=== PATIENT | female | born 2000 | race Caucasian/White ===

== ENCOUNTER 2019-10-06 13:02 | Emergency (ER) | payer OTHER ==
--- NOTE | 2019-10-06 13:48 | ER Document Report ---
ED Medical Screen (RME) - General Chief Complaint: Abdominal Pain Stated Complaint: ABDOMINAL PAIN Time Seen by Provider: 10/06/19 13:43 Notes: HPI: 19-year-old female who is approximately 8 weeks by dates presenting for an episode of vaginal bleeding overnight last night. Also has been having some intermittent sharp left pelvic pain. 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 Has not had fever nausea vomiting I have greeted and performed a rapid initial assessment of this patient. A comprehensive ED assessment and evaluation of the patient, analysis of test results and completion of the medical decision making process will be conducted by additional ED providers PHYSICAL EXAMINATION: GENERAL: Well-appearing, well-nourished and in no acute distress. HEAD: Atraumatic, normocephalic. EYES: sclera anicteric, conjunctiva are normal. ENT: Moist mucous membranes. NECK: Normal range of motion LUNGS: Normal work of breathing HEART: 2+ radial pulses bilaterally ABD: limited by positioning for exam in triage. Mild tenderness in the left pelvis on palpation EXTREMITIES: no pitting or edema. No cyanosis. NEUROLOGICAL: No focal neurological deficits. Moves all extremities spontaneously and on command. PSYCH: Normal mood, normal affect. SKIN: Warm, Dry, normal turgor, no rashes or lesions noted. - Related Data Allergies/Adverse Reactions: No Known Allergies Allergy (Verified 10/06/19 13:41) Past Medical History - Social History Frequency of alcohol use: None Drug Abuse: None Physical Exam - Vital signs Vitals: Temp Pulse Resp BP Pulse Ox 98.4 F 84 16 104/62 100 10/06/19 13:10/06/19 13:10/06/19 13:10/06/19 13:10/06/19 13:27 Course - Vital Signs Vital signs: Temp Pulse Resp BP Pulse Ox 98.4 F 84 16 104/62 100 10/06/19 13:27 10/06/19 13:10/06/19 13:27 10/06/19 13:27 10/06/19 13:27
[2019-10-06 16:03] LABS: APPEARANCE,URINE SLIGHTLY-CLOUDY; BILIRUBIN,URINE NEGATIVE (NEGATIVE); COLOR,URINE YELLOW; GLUCOSE, URINE NEGATIVE (NEGATIVE); KETONES,URINE NEGATIVE (NEGATIVE); LEUKOCYTE ESTERASE,URINE MODERATE (NEGATIVE); NITRITE,URINE NEGATIVE (NEGATIVE); PROTEIN,URINE NEGATIVE (NEGATIVE); UROBILINOGEN,URINE NEGATIVE mg/dL (<2.0)
[2019-10-06 16:07] LABS: ABSOLUTE EOSINOPHILS # (AUTO) 0.1 10^3/uL (0.0-0.6); ABSOLUTE LYMPHOCYTES (AUTO) 2.2 10^3/uL (0.5-4.7); ABSOLUTE MONOCYTES (AUTO) 0.3 10^3/uL (0.1-1.4); ABSOLUTE NEUT (AUTO) 6.3 10^3/uL (1.7-8.2); BASOPHILS % (AUTO) 0.4 % (0-2); EOSINOPHILS % (AUTO) 0.6 % (0-6); HEMATOCRIT 39.8 % (36.0-47.0); HEMOGLOBIN 13.9 g/dL (12.0-15.5); MEAN CORPUSCULAR HEMOGLOBIN 29.6 pg (27.0-33.4); MEAN CORPUSCULAR HGB CONC 34.9 g/dL (32.0-36.0); MEAN CORPUSCULAR VOLUME 85 fl (80-97); MONOCYTES % (AUTO) 3.8 % (3-13); PLATELET COUNT 246 10^3/uL (150-450); RED BLOOD COUNT 4.68 10^6/uL (3.72-5.28); RED CELL DISTRIBUTION WIDTH 13.1 % (11.5-14.0); SEGMENTED NEUTROPHILS % (AUTO) 70.2 % (42-78); TOTAL CELLS COUNTED % (AUTO) 100 %
[2019-10-06 16:18] LABS: ALBUMIN 4.9 g/dL (3.5-5.0); ALKALINE PHOSPHATASE 88 U/L (38-126); ANION GAP 11 (5-19); ASPARTATE AMINO TRANSFERASE 22 U/L (14-36); BILIRUBIN,TOTAL 0.9 mg/dL (0.2-1.3); BLOOD UREA NITROGEN 7 mg/dL (7-20); CALCIUM 9.5 mg/dL (8.4-10.2); CARBON DIOXIDE 26 mmol/L (22-30); CHLORIDE 100 mmol/L (98-107); GLUCOSE 79 mg/dL (75-110); POTASSIUM 4.4 mmol/L (3.6-5.0); TOTAL PROTEIN 8.4 g/dL (6.3-8.2)
--- NOTE | 2019-10-06 17:20 | ER Document Report ---
ED GI/ - General Chief Complaint: Abdominal Pain Stated Complaint: ABDOMINAL PAIN Time Seen by Provider: 10/06/19 17:10 Primary Care Provider: ТАТЬЯНА GODWIN CRNP [NO LOCAL MD] - Follow up as needed Mode of Arrival: Ambulatory Information source: Patient Notes: Patient states that she is G2, P1 8 weeks with vaginal bleeding that started yesterday. 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 Patient denies any urinary symptoms. Patient does complain of left lower pelvic pain. Patient reports nausea with vomiting x2 episodes today. Patient states she has had nausea throughout the thus far. Patient states that she has not had an ultrasound to confirm the yet. - HPI Patient complains to provider of: Abdominal pain, Vaginal bleeding. 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 denies: Dysuria, Fever, Urinary hesitancy, Urinary frequency, Urinary retention, Urinary urgency Exacerbated by: Denies Relieved by: Denies Similar symptoms previously: No Recently seen / treated by doctor: No - Related Data Allergies/Adverse Reactions: No Known Allergies Allergy (Verified 10/06/19 13:41) Past Medical History - General Information source: Patient - Social History Smoking Status: Never Smoker Frequency of alcohol use: None Drug Abuse: None Occupation: none Lives with: Family Family History: Reviewed & Not Pertinent Patient has suicidal ideation: No Patient has homicidal ideation: No - Medical History Medical History: Negative Surgical Hx: Negative Review of Systems - Review of Systems Constitutional: No symptoms reported. denies: Fever, Recent illness EENT: No symptoms reported Cardiovascular: No symptoms reported. denies: Chest pain, Dizziness Respiratory: No symptoms reported. denies: Cough Gastrointestinal: Abdominal pain, Nausea, Vomiting. denies: Diarrhea Genitourinary: No symptoms reported. denies: Dysuria, Flank pain Female Genitourinary: , Vaginal bleeding. denies: Vaginal discharge Musculoskeletal: No symptoms reported. denies: Back pain Skin: No symptoms reported Hematologic/Lymphatic: No symptoms reported Neurological/Psychological: No symptoms reported Physical Exam - Vital signs Vitals: Temp Pulse Resp BP Pulse Ox 98.4 F 84 16 104/62 100 02/04/20 13:27 10/06/19 13:27 10/06/19 13:27 10/06/19 13:27 10/06/19 13:27 - General General appearance: Appears well, Alert In distress: None - HEENT Head: Normocephalic, Atraumatic Eyes: Normal Conjunctiva: Normal Nasal: Normal Mouth/Lips: Normal Mucous membranes: Normal Neck: Normal, Supple. No: Lymphadenopathy - Respiratory Respiratory status: No respiratory distress Chest status: Nontender Breath sounds: Normal. No: Rales, Rhonchi, Stridor, Wheezing Chest palpation: Normal - Cardiovascular Rhythm: Regular Heart sounds: S1 appreciated, S2 appreciated Murmur: No - Abdominal Inspection: Gravid female Distension: No distension Bowel sounds: Normal Tenderness: Tender - Left lower pelvic Organomegaly: No organomegaly - Back Back: Normal, Nontender. No: CVA tenderness - Extremities General upper extremity: Normal inspection, Normal strength General lower extremity: Normal inspection, Normal strength - Neurological Neuro grossly intact: Yes Cognition: Normal Orientation: AAOx4 [place] Coma Scale Eye Opening: Spontaneous [place] Coma Scale Verbal: Oriented [place] Coma Scale Motor: Obeys Commands [place] Coma Scale Total: 15 - Psychological Associated symptoms: Normal affect, Normal mood - Skin Skin Temperature: Warm Skin Moisture: Dry Skin Color: Normal Course - Vital Signs Vital signs: Temp Pulse Resp BP Pulse Ox 98.7 F 86 20 120/68 100 10/06/19 18:43 10/06/19 18:43 10/06/19 18:43 10/06/19 18:43 10/06/19 18:43 - Laboratory Result Diagrams: 10/06/19 15:25 10/06/19 15:25 Laboratory results interpreted by me: 10/06/19 10/06/19 15:15 15:25 Creatinine 0.44 L Total Protein 8.4 H Beta HCG, Quant 328943.00 H Ur Leukocyte Esterase MODERATE H Discharge - Discharge Clinical Impression: Vaginal bleeding affecting early UTI (urinary tract infection) Qualifiers: Urinary tract infection type: site unspecified Hematuria presence: without hematuria Qualified Code(s): N39.0 - Urinary tract infection, site not specified Subchorionic bleed Qualifiers: Fetus number: single or unspecified fetus Trimester: first trimester Qualified Code(s): O41.8X10 - Other specified disorders of amniotic fluid and membranes, first trimester, not applicable or unspecified Condition: Stable Disposition: HOME, SELF-CARE Instructions: Bleeding During Early ([facility]), Cephalexin ([facility]), Urinary Tract Infection ([facility]) Additional Instructions: Return immediately for any new or worsening symptoms Followup with your primary care provider, call tomorrow to make a followup appointment Follow-up with your ULTIMATE HOOPS REFEREE for recheck. Your ultrasound showed a subchorionic bleed, which is the cause of your vaginal bleeding at this time. Prescriptions: Cephalexin Monohydrate [Keflex 500 mg Capsule] 500 mg PO BID 5 Days capsule Promethazine HCl [Phenergan 25 mg Tablet] 25 mg PO Q6H PRN #10 tablet PRN Reason: Referrals: ТАТЬЯНА GODWIN CRNP [NO LOCAL MD] - Follow up as needed
--- NOTE | 2019-10-06 18:19 | RADIOLOGY REPORT (SQ) ---
EXAM DESCRIPTION: U/S OB TRANSVAG W/DOPPLER COMPLETED DATE/TIME: 10/06/2019 6:08 pm REASON FOR STUDY: left pelvic pain eval for ectopic COMPARISON: None. TECHNIQUE: Transvaginal static and realtime grayscale images acquired of the pelvis. Additional pamela cted spectral and color Doppler images recorded. All images stored on PACs. [facility] [place] CLINICAL DATES: 7 weeks 6 days LIMITATIONS: None. FINDINGS: FETUS: Single Living intrauterine . ULTRASOUND EGA: 7 weeks 5 days ULTRASOUND NATALIIA: 05/19/2020 EFW: Not applicable less than 20 weeks. CRL: 1.4 cm FHR: 162 beats per minute. SURVEY: Too early to assess. AMNIOTIC FLUID: Adequate amount. PLACENTA: Not yet developed due to early gestation. SUBCHORIONIC BLEED: Yes. SIZE OF BLEED: 3 x 3 x 2 cm UTERUS: No masses. No anomalies. CERVICAL LENGTH: Not applicable. Less than 6 weeks. RIGHT ADNEXA: Normal ovary with normal vascular flow. No adnexal free fluid. No adnexal masses. LEFT ADNEXA: Normal ovary with normal vascular flow. No adnexal free fluid. No adnexal masses. FREE FLUID: None. OTHER: No other significant finding. IMPRESSION: Single live intrauterine with moderate to large subchorionic hemorrhage. No e vidence of heterotopic . US EGA 7 weeks 5 days Trimester of : First trimester - 0 to 13 weeks. TECHNICAL DOCUMENTATION: JOB ID: [id number] [employer]- All Rights Reserved rev Reading location - IP/workstation name: [email or web address]
[2019-10-06 18:45] VITALS: BP 120/68
[2019-10-06] MEDS ORDERED: CEPHALEXIN 500 MG CAPSULE PO ONE (19:29)
== END 2019-10-06 19:51 | disposition home or self-care (01) ==
LOC: ER 13:02
DX: O23.41 Unspecified infection of urinary tract in pregnancy, first trimester (principal); O20.8 Other hemorrhage in early pregnancy; O21.9 Vomiting of pregnancy, unspecified; Z3A.08 8 weeks gestation of pregnancy
CPT/HCPCS: 36415; 76817; 80053; 81001; 84702; 85025; 86900; 86901; 93976; 99284

== ENCOUNTER 2019-10-12 09:40 | Emergency (ER) | payer OTHER ==
[2019-10-12] MEDS ORDERED: METOCLOPRAMIDE HCL INJ/PF 10 MG/2 ML SDV IV ONE (10:15)
[2019-10-12] MEDS ORDERED: NORMAL SALINE 1000 ML 1,000 ML IV ONE (10:15)
[2019-10-12] MEDS ORDERED: DIPHENHYDRAMINE HCL 50 MG/ML VIAL IV ONE (10:15)
--- NOTE | 2019-10-12 10:16 | ER Document Report ---
ED Medical Screen (RME) - General Chief Complaint: Nausea/Vomiting Stated Complaint: NAUSEA/VOMITING Time Seen by Provider: 10/12/19 10:11 Mode of Arrival: Ambulatory Information source: Patient Notes: Patient is presently 8 weeks G2, P1. Patient states she is had nausea and vomiting the past 4 days. Patient reports vomiting 4 episodes today. No diarrhea. Patient denies any abdominal tenderness or vaginal bleeding. Patient states she was recently diagnosed with a UTI but has not been able to get the antibiotic as it did not get sent over to the pharmacy how it was initially supposed to. I have greeted and performed a rapid initial assessment of this patient. A comprehensive ED assessment and evaluation of the patient, analysis of test results and completion of the medical decision making process will be conducted by additional ED providers. - Related Data Allergies/Adverse Reactions: No Known Allergies Allergy (Verified 10/12/19 10:07) Past Medical History - Social History Frequency of alcohol use: None Drug Abuse: None Physical Exam - Vital signs Vitals: Temp Pulse BP Pulse Ox 98.2 F 84 122/73 100 10/12/19 09:46 10/12/19 09:46 10/12/19 09:46 10/12/19 09:46 - General General appearance: Alert - Abdominal Tenderness: Nontender Course - Vital Signs Vital signs: Temp Pulse Resp BP Pulse Ox 98.2 F 84 122/73 100 10/12/19 09:46 10/12/19 09:46 10/12/19 09:46 10/12/19 09:46
[2019-10-12 10:57] LABS: APPEARANCE,URINE CLOUDY; BILIRUBIN,URINE NEGATIVE (NEGATIVE); GLUCOSE, URINE NEGATIVE (NEGATIVE); KETONES,URINE 20 mg/dL (NEGATIVE); LEUKOCYTE ESTERASE,URINE MODERATE (NEGATIVE); NITRITE,URINE NEGATIVE (NEGATIVE); PROTEIN,URINE 30 mg/dL (NEGATIVE); URINE SPECIFIC GRAVITY 1.026
[2019-10-12 10:58] LABS: COLOR,URINE YELLOW
[2019-10-12 11:31] LABS: ABSOLUTE LYMPHOCYTES (AUTO) 1.4 10^3/uL (0.5-4.7); ABSOLUTE MONOCYTES (AUTO) 0.3 10^3/uL (0.1-1.4); BASOPHILS % (AUTO) 0.3 % (0-2); EOSINOPHILS % (AUTO) 0.2 % (0-6); HEMATOCRIT 41.4 % (36.0-47.0); HEMOGLOBIN 14.9 g/dL (12.0-15.5); LYMPHOCYTES % (AUTO) 18.7 % (13-45); MEAN CORPUSCULAR VOLUME 83 fl (80-97); MONOCYTES % (AUTO) 3.6 % (3-13); PLATELET COUNT 247 10^3/uL (150-450); RED BLOOD COUNT 4.97 10^6/uL (3.72-5.28); RED CELL DISTRIBUTION WIDTH 13.3 % (11.5-14.0); SEGMENTED NEUTROPHILS % (AUTO) 77.2 % (42-78); TOTAL CELLS COUNTED % (AUTO) 100 %; WHITE BLOOD COUNT 7.7 10^3/uL (4.0-10.5)
[2019-10-12 11:50] LABS: ALBUMIN 5.1 g/dL (3.5-5.0); ALKALINE PHOSPHATASE 90 U/L (38-126); ANION GAP 13 (5-19); ASPARTATE AMINO TRANSFERASE 31 U/L (14-36); BILIRUBIN,TOTAL 1.1 mg/dL (0.2-1.3); BLOOD UREA NITROGEN 9 mg/dL (7-20); CALCIUM 10.1 mg/dL (8.4-10.2); CARBON DIOXIDE 26 mmol/L (22-30); CHLORIDE 101 mmol/L (98-107); GLUCOSE 88 mg/dL (75-110); POTASSIUM 4.1 mmol/L (3.6-5.0); TOTAL PROTEIN 8.5 g/dL (6.3-8.2)
[2019-10-12] MEDS ORDERED: CEPHALEXIN 500 MG CAPSULE PO ONE (11:52)
--- NOTE | 2019-10-12 11:57 | ER Document Report ---
ED General - General Chief Complaint: Nausea/Vomiting Stated Complaint: NAUSEA/VOMITING Time Seen by Provider: 10/12/19 10:11 Mode of Arrival: Ambulatory - HPI Notes: Patient is a 19-year-old female, G2, P1 at approximately 8 weeks gestation, who presents emergency department for evaluation of nausea and vomiting. She is being seen by an OB at [place]. She is tried oral Phenergan and Reglan without any significant relief. She is never been given suppositories. She is not on Zofran or likely just at this time. She denies any fevers or chills. She denies any vaginal bleeding or discharge. No abdominal pain. She states she was seen here for urinary tract infection about a week ago, states the antibiotic was not sent to the pharmacy, and she did not follow-up in regards to it. She denies any dysuria, has had some mild urinary frequency. - Related Data Allergies/Adverse Reactions: No Known Allergies Allergy (Verified 10/12/19 10:07) Home Medications: vitamin, Phenergan and Reglan as needed Past Medical History - General Information source: Patient - Social History Smoking Status: Never Smoker Frequency of alcohol use: None Drug Abuse: None Family History: Reviewed & Not Pertinent Patient has suicidal ideation: No Patient has homicidal ideation: No Review of Systems - Review of Systems Gastrointestinal: See HPI -: Yes All other systems reviewed and negative Physical Exam - Vital signs Vitals: Temp Pulse BP Pulse Ox 98.2 F 84 122/73 100 10/12/19 09:46 10/12/19 09:46 10/12/19 09:46 10/12/19 09:46 - Notes Notes: Vital signs reviewed, please refer to chart. Head is normocephalic, atraumatic. Pupils equal round, reactive to light. Neck is supple without meningismus. Heart is regular rate and rhythm. Lungs are clear to auscultation bilaterally. Abdomen is soft, nontender, normoactive bowel sounds throughout. Extremities without cyanosis, clubbing. Posterior calves are nontender. Peripheral pulses are equal. Skin is warm and dry. Patient is awake, alert, neurological exam is nonfocal. Course - Re-evaluation Re-evalutation: 10/12/19 11:55 Patient is a 19-year-old female who presents to the emergency department for evaluation. She states she is had multiple episodes of nonbloody, nonbilious emesis. She states that this is not unfamiliar, and she had similar symptoms in the past with her last . She does not seem to be significantly volume depleted at this time. Labs are pending. She does have some bacteriuria, will treat with Keflex. She is given IV fluids and medications to help. We will continue to monitor. 10/12/19 11:56 10/12/19 12:55 Patient's laboratory investigations failed to reveal significant dehydration at this time. We will treat with Keflex. I will send her home with a prescription for Phenergan suppositories as well as diclegis. She is to follow-up with OB, return to the ED with worsening or concerning symptoms of any sort. - Vital Signs Vital signs: Temp Pulse Resp BP Pulse Ox 98.1 F 84 122/73 100 10/12/19 11:46 10/12/19 09:46 10/12/19 09:46 10/12/19 09:46 - Laboratory Result Diagrams: 10/12/19 11:15 10/12/19 11:15 Laboratory results interpreted by me: 10/12/19 10/12/19 10:25 11:15 Creatinine 0.45 L Total Protein 8.5 H Albumin 5.1 H Urine Protein 30 H Urine Ketones 20 H Urine Urobilinogen 2.0 H Ur Leukocyte Esterase MODERATE H Urine Ascorbic Acid 40 H Discharge - Discharge Clinical Impression: UTI (urinary tract infection), Nausea/vomiting in Condition: Stable Disposition: HOME, SELF-CARE Instructions: Antinausea Medication ([facility]), Cephalexin ([facility]), Urinary Tract Infection ([facility]) Additional Instructions: Stay hydrated with small, frequent sips of fluids. Use nausea medications as directed. Follow-up with your OB this week. Return to the emergency department with worsening or new concerning symptoms of any sort.
[2019-10-12 13:22] VITALS: BP 112/72
== END 2019-10-12 13:22 | disposition home or self-care (01) ==
LOC: ER 09:40
DX: O21.8 Other vomiting complicating pregnancy (principal); O23.41 Unspecified infection of urinary tract in pregnancy, first trimester; Z3A.08 8 weeks gestation of pregnancy
CPT/HCPCS: 36415; 80053; 81001; 83690; 85025; 87086; 96361; 96374; 96375; 99283; J1200; J2765; J7030

== ENCOUNTER 2019-11-14 23:18 | Emergency (ER) | payer OTHER ==
[2019-11-14] MEDS ORDERED: METOCLOPRAMIDE HCL INJ/PF 10 MG/2 ML SDV IV ONE (23:49)
[2019-11-14] MEDS ORDERED: NORMAL SALINE 1000 ML 1,000 ML IV ONE (23:49)
[2019-11-15] MEDS ORDERED: ONDANSETRON 4 MG TAB.RAPDIS PO ONE (00:48)
--- NOTE | 2019-11-15 00:49 | RADIOLOGY REPORT (SQ) ---
EXAM DESCRIPTION: XR CHEST 2 VIEWS COMPLETED DATE/TME: 11/14/2019 23:49 CLINICAL HISTORY: 19 years, Female, chest pain COMPARISON: NUMBER OF VIEWS: TECHNIQUE: LIMITATIONS: None. FINDINGS: No evidence of pulmonary infiltrate or pleural effusion. The heart and mediastinum are unremarkable. Pulmonary vascularity appears normal. IMPRESSION: Normal chest x-ray. copyright 2010 [employer]- All Rights Reserved
[2019-11-15] MEDS ORDERED: ONDANSETRON HCL INJ/PF 4 MG/2 ML SDV IV ONE (01:26)
--- NOTE | 2019-11-15 01:27 | ER Document Report ---
Entered by FANG ROYAL SCRIBE 11/15/19 0044 Acting as scribe for:LIZ FLOOD IV, MD ED General - General Chief Complaint: OB Problem (<20wks) Stated Complaint: VOMITING BLOOD/13 WEEKS Time Seen by Provider: 11/15/19 00:41 Mode of Arrival: Ambulatory Information source: Patient Notes: This 19 year old female patient approximately x13 weeks presents to the ED today with complaints of hematemesis x3 that occurred prior to arrival. Patient reports that she has been vomiting since she found out she was , but states that she saw blood clots and dark colored blood in the toilet after dry heaving tonight. Patient also reports lightheadedness, dizziness, dry cough, and abdominal pain. TRAVEL OUTSIDE OF THE [place] IN LAST 30 DAYS: No - Related Data Allergies/Adverse Reactions: diphenhydramine [From Benadryl] Adverse Reaction (Verified 11/14/19 23:41) Home Medications: phenergan, zofran, scalpomaine patches. Past Medical History - General Information source: Patient - Social History Smoking Status: Never Smoker Cigarette use (# per day): No Chew tobacco use (# tins/day): No Smoking Education Provided: No Frequency of alcohol use: None Drug Abuse: None Family History: Reviewed & Not Pertinent Patient has suicidal ideation: No Patient has homicidal ideation: No Review of Systems - Review of Systems Constitutional: No symptoms reported EENT: No symptoms reported Cardiovascular: See HPI, Dizziness, Lightheaded Respiratory: See HPI, Cough Gastrointestinal: See HPI, Abdominal pain, Nausea, Vomiting, Blood in vomit Genitourinary: No symptoms reported Female Genitourinary: See HPI, - x13 weeks Musculoskeletal: No symptoms reported Skin: No symptoms reported Hematologic/Lymphatic: No symptoms reported Neurological/Psychological: No symptoms reported -: Yes All other systems reviewed and negative Physical Exam - Vital signs Vitals: Pulse Resp BP Pulse Ox 103 H 18 108/83 100 11/14/19 23:35 11/14/19 23:35 11/14/19 23:35 11/14/19 23:35 - General General appearance: Alert, Other - Appears pale. - HEENT Head: Normocephalic, Atraumatic Eyes: Normal Pupils: PERRL - Respiratory Respiratory status: No respiratory distress Chest status: Nontender Breath sounds: Normal Chest palpation: Normal - Cardiovascular Rhythm: Regular, Tachycardia Heart sounds: Normal auscultation Murmur: No Friction rub: No Gallop: None auscultated - Abdominal Inspection: Normal Distension: No distension Bowel sounds: Normal Tenderness: Nontender - Abdomen soft Organomegaly: No organomegaly - Back Back: Normal, Nontender - Extremities General upper extremity: Normal inspection General lower extremity: Normal inspection - Neurological Neuro grossly intact: Yes - Psychological Associated symptoms: Normal affect, Normal mood - Skin Skin Temperature: Warm Skin Moisture: Dry Skin Color: Pale Course - Re-evaluation Re-evalutation: 11/15/19 03:09 Results of ED MSE discussed with patient. All questions were answered prior to discharge. Emergency signs and symptoms, reasons to return to the emergency department discussed with patient. - Vital Signs Vital signs: Temp Pulse Resp BP Pulse Ox 97.9 F 103 H 16 112/63 100 11/15/19 01:36 11/14/19 23:35 11/15/19 02:01 11/15/19 02:01 11/15/19 02:01 - Laboratory Result Diagrams: 11/15/19 01:25 11/15/19 01:25 Laboratory results interpreted by me: 11/15/19 11/15/19 01:25 01:25 Lymph % (Auto) 11.0 L [place] % (Auto) 1.7 L Absolute Neuts (auto) 8.4 H Seg Neutrophils % 87.1 H Carbon Dioxide 18 L Anion Gap 20 H Creatinine 0.44 L Calcium 10.3 H Total Bilirubin 2.0 H Direct Bilirubin 0.6 H AST 53 H ALT 74 H Total Protein 8.5 H Albumin 5.2 H Beta HCG, Quant 535129.00 H Discharge - Discharge Clinical Impression: Hyperemesis gravidarum Condition: Good Disposition: HOME, SELF-CARE Additional Instructions: Hyperemesis Gravidarum Hyperemesis gravidarum is the medical term for severe vomiting during . We don't know exactly why it occurs, but it's a common problem. Dehydration can occur. This reduces blood flow to the placenta, decreasing the baby's nourishment. The baby will also become dehydrated. There can be harmful changes in blood sodium, potassium, or acid balance. Our goal is to correct, and prevent, dehydration. For severe cases, we give IV fluids. Antinausea medication will be prescribed. (Don't be concerned about " defects" -- the risk to you and your baby from the hyperemesis is the biggest problem. The antinausea medication is very safe at this stage of .) Call the doctor if you have vaginal bleeding, abdominal pain, severe lightheadedness or weakness, or other alarming symptoms. Referrals: REENA VÁZQUEZ MD [ACTIVE PROVISIONAL STAFF] - Follow up as needed I personally performed the services described in the documentation, reviewed and edited the documentation which was dictated to the scribe in my presence, and it accurately records my words and actions.
[2019-11-15 01:44] LABS: ABSOLUTE LYMPHOCYTES (AUTO) 1.1 10^3/uL (0.5-4.7); ABSOLUTE MONOCYTES (AUTO) 0.2 10^3/uL (0.1-1.4); ABSOLUTE NEUT (AUTO) 8.4 10^3/uL (1.7-8.2); BASOPHILS % (AUTO) 0.2 % (0-2); MEAN CORPUSCULAR HEMOGLOBIN 29.9 pg (27.0-33.4); MEAN CORPUSCULAR HGB CONC 35.6 g/dL (32.0-36.0); MEAN CORPUSCULAR VOLUME 84 fl (80-97); MONOCYTES % (AUTO) 1.7 % (3-13); PLATELET COUNT 204 10^3/uL (150-450); RED BLOOD COUNT 5.01 10^6/uL (3.72-5.28); RED CELL DISTRIBUTION WIDTH 12.7 % (11.5-14.0); SEGMENTED NEUTROPHILS % (AUTO) 87.1 % (42-78); TOTAL CELLS COUNTED % (AUTO) 100 %; WHITE BLOOD COUNT 9.7 10^3/uL (4.0-10.5)
[2019-11-15 02:00] LABS: ALBUMIN 5.2 g/dL (3.5-5.0); ALKALINE PHOSPHATASE 111 U/L (38-126); ASPARTATE AMINO TRANSFERASE 53 U/L (14-36); BILIRUBIN,DIRECT 0.6 mg/dL (0.0-0.4); BLOOD UREA NITROGEN 7 mg/dL (7-20); CALCIUM 10.3 mg/dL (8.4-10.2); GLUCOSE 95 mg/dL (75-110); POTASSIUM 3.8 mmol/L (3.6-5.0); TOTAL PROTEIN 8.5 g/dL (6.3-8.2)
[2019-11-15 02:05] LABS: CARBON DIOXIDE 18 mmol/L (22-30); CHLORIDE 99 mmol/L (98-107)
[2019-11-15 02:23] LABS: ANION GAP 20 (5-19)
[2019-11-15 03:46] VITALS: BP 114/62
== END 2019-11-15 03:45 | disposition home or self-care (01) ==
LOC: ER 23:18
DX: O21.0 Mild hyperemesis gravidarum (principal); O99.611 Diseases of the digestive system complicating pregnancy, first trimester; K92.0 Hematemesis; O26.891 Other specified pregnancy related conditions, first trimester; R42 Dizziness and giddiness; R05 Cough; R10.9 Unspecified abdominal pain; R00.0 Tachycardia, unspecified; Z79.899 Other long term (current) drug therapy; Z3A.13 13 weeks gestation of pregnancy
CPT/HCPCS: 99283; 96361; 96374; 36415; 84702; 83690; 85025; 80053; 71046; S0119; J2765; J2405; J7030

== ENCOUNTER 2020-05-02 12:35 | Outpatient (CLI) | payer OTHER ==
[2020-05-02 13:11] LABS: APPEARANCE,URINE CLOUDY; BILIRUBIN,URINE NEGATIVE (NEGATIVE); COLOR,URINE YELLOW; GLUCOSE, URINE NEGATIVE (NEGATIVE); KETONES,URINE NEGATIVE (NEGATIVE); LEUKOCYTE ESTERASE,URINE LARGE (NEGATIVE); NITRITE,URINE NEGATIVE (NEGATIVE); PROTEIN,URINE 30 mg/dL (NEGATIVE); URINE SPECIFIC GRAVITY 1.014; UROBILINOGEN,URINE NEGATIVE mg/dL (<2.0)
[2020-05-02 13:26] LABS: URINE AMPHETAMINES SCREEN NEGATIVE; URINE BARBITURATES SCREEN NEGATIVE; URINE BENZODIAZEPINES SCREEN NEGATIVE; URINE COCAINE SCREEN NEGATIVE; URINE MARIJUANA (THC) SCREEN NEGATIVE; URINE METHADONE SCREEN NEGATIVE; URINE PHENCYCLIDINE SCREEN NEGATIVE
--- NOTE | 2020-05-02 13:37 | Non Stress Test Report ---
Non Stress Test Datetime Report Generated by CPN: 05/02/2020 13:37 DEMOGRAPHIC Test Number: 2 EGA NST: 37.5 EGA NST: 33.6 INDICATION Indication for Study (NST) Other: Provider Order, IUP at 33.6 VITAL SIGNS Temperature - NST: 98.3 Pulse - NST: 114 RESP - NST: 15 NBPSYS NST: 86 NBPDIA NST: 52 MONITORING Monitor Explained: Monitor Explained; Test Explained; Patient Verbalized Understanding Monitor Explained: Monitor Explained; Test Explained; Patient Verbalized Understanding Time on Monitor: 05/02/2020 13:00 Time on Monitor: 04/05/2020 17:19 Time off Monitor: 05/02/2020 13:30 Time off Monitor: 04/05/2020 17:48 NST Duration: 30 NST Duration: 29 NST INTERVENTIONS NST Interventions: PO Hydration; Vibroacoustic Stim NST Interventions: None Physician Notified NST: Yady Walker CNM Physician Notified NST: DR VÁZQUEZ Physician Notified NST: Dr. Vázquez BABY A: [id number] BABY A Movement : Present Movement : Present Movement : Present Contraction Frequency : occasional Contraction Frequency : None FHR Baseline : 140 FHR Baseline : 140 Accelerations : 15X15 Accelerations : 15X15 Decelerations : None Decelerations : None Variability : Moderate 6-25bpm Variability : Moderate 6-25bpm NST Review: Meets Criteria for Reactive NST NST Review: Meets Criteria for Reactive NST NST Review and Verified By : Dee Sanchez RN NST Review and Verified By : Chely RM NST Results: Reactive NST Results: Reactive NST Results: Reactive NST REPORT Report Trigger: Send Report
== END 2020-05-02 14:17 | disposition home or self-care (01) ==
LOC: LC 12:35
PROVIDERS: ATTEND Obstetrics & Gynecology
DX: O36.8130 Decreased fetal movements, third trimester, not applicable or unspecified (principal); O99.89 Other specified diseases and conditions complicating pregnancy, childbirth and the puerperium; R10.9 Unspecified abdominal pain; M54.9 Dorsalgia, unspecified; Z3A.37 37 weeks gestation of pregnancy
CPT/HCPCS: 59025; 80307; 81005